=== PATIENT | female | born 1990 | race Caucasian/White ===

== ENCOUNTER 2023-11-28 16:26 | Emergency (ER) | payer OTHER, SELFPAY ==
[2023-11-28 16:28] VITALS: BP 113/82
[2023-11-28 17:06] VITALS: BMI 23.2
--- NOTE | 2023-11-28 17:26 | ED.GENMED ---
History of Present Illness
General
Chief Complaint: Headache
Source: patient
Time Seen by Provider: 11/28/23 17:10
Travel History
Have you had any contact with someone who has COVID-19?: No
Do you have any symptoms of coronavirus? Fever > 100 degrees, chills, cough, shortness of breath, sore throat, loss of taste or smell, muscle aches, or headache?: No
History of Present Illness
History of Present Illness:
33-year-old female presents to the emergency room complaining of a headache. Patient states she began feeling unwell about a week ago. She began feeling runny nose and nasal congestion. She also has generalized malaise. Over the past 3 days or
so she began having headache which is located on the right side of her head. It seems to existed in the right frontal area and really posterior head without much pain in between. Pain is made much worse with leaning forward. Movement in general
makes the headache worse as well. She denies associated nausea, vomiting, diarrhea, numbness or focal weakness. Patient does say she feels generally weak all over. She felt uncomfortable driving today due to the headache. She was seen at an
urgent care and was referred to the emergency room for further evaluation of this headache.
Phy Exam
Physical Exam
Physical Exam:
General: Awake, Alert, Oriented X3. No acute distress.
Vitals: unremarkable
Head: Atraumatic, ischemic pain with percussion of the frontal or maxillary sinuses
Ears: Normal TMs bilaterally
Eyes: Pupils equal, EOMI
Throat: Airway intact, no exudates
Neck: Trachea midline
Lungs: Clear and equal b/l
Heart: Regular rate, no murmurs
Abd: Soft, Nontender, No pulsatile mass
Neuro: Cranial nerves intact, muscle strength equal bilaterally, cerebellar exam normal
Skin: Warm, dry, no rash
Extremities: pulses equal b/l, no edema
Course
Orders/Labs/Results
Orders:
Orders
11/28/23 17:24
Ketorolac [Toradol] 15 mg IV NOW STA
11/28/23 17:42
COVID-19 Antigen Urgent
Source: Nasal Swab
Influenza A+B Rapid Molecular Urgent
SOPHIA Source: Nasal Swab
Specimen Description:
Abnormal Lab Results
11/28/23
17:42
SARS-CoV-2 Antigen Positive A
(Negative)
Vital Signs
Initial and Last Documented VS:
Initial Vital Signs
Temp Pulse Resp BP Pulse Ox
98.6 F 79 18 113/82 100
11/28/23 16:28 11/28/23 16:28 11/28/23 16:28 11/28/23 16:28 11/28/23 16:28
Last Documented Vital Signs
Temp Pulse Resp BP Pulse Ox
98.2 F 78 18 103/62 98
11/28/23 18:44 11/28/23 18:44 11/28/23 18:44 11/28/23 18:44 11/28/23 18:44
MDM/Problems Addressed
Differential Diagnosis Includes:
Influenza, COVID, other viral syndrome, sinusitis, intracranial lesion
MDM/Problems Addressed:
Patient presents with headache, body aches, feeling like she cannot drive or safely leave the house. Influenza test is negative. COVID test is positive. Initially the plan on obtaining a CT but now that the COVID test was obtained this is
unnecessary as we have a reason for her symptoms. She does not have any high risk medical history and may have had symptoms for greater than 5 days and so we will not prescribe Paxlovid. Patient stable for discharge home with symptomatic care
*Pulse Oximetry
Patient hypoxic: no
*Critical Care Note
Total Time (30-74mins, 75-104mins- exclusive of procedures): Not Applicable
ED Attending Note
-
Portions of this chart may have been created with voice recognition software.� Occasional wrong word or��sound alike� substitutions may have occurred due to the inherent limitations of voice recognition software.
Discharge Plan
Departure
Patient Disposition: Home (Routine Discharge)
Date of Disposition: 11/28/23
Time of Disposition: 18:15
Patient with high blood pressure during this ER visit?: No
Condition: Good
Discharge Problem:
COVID-19
Instructions: Headache, Adult (DC), COVID-19 ED
Referrals:
Rula Mccormack, DO [Family Provider] -
Activity Restrictions/Additional Instructions:
You can take 600mg of ibuprofen and 1000mg of Tylenol every 6 hours for headache, body aches.
Interventions
Interventions:
*Risk Screen - Suicide Last Done: 11/28/23 17:06
*General Assessment Last Done: 11/28/23 16:28
*Neglect/Abuse Screening Last Done: 11/28/23 17:06
ED- Fall Risk Assessment Last Done: 11/28/23 17:09
*ED COVID-19 Vaccine History Last Done: 11/28/23 16:28
*Nursing Disposition Last Done: 11/28/23 18:44
ED- Neurological Assessment Last Done: 11/28/23 17:09
Discharge Date and Time
Discharge Date/Time: 11/28/23 18:47
Print Language: ARMENIAN
[2023-11-28] MEDS: TORADOL 15 MG IV (17:52)
[2023-11-28 18:12] LABS: COVID-19 Antigen Positive (Negative)
[2023-11-28 18:44] VITALS: BP 103/62
== END 2023-11-28 18:47 | disposition home or self-care (01) ==
LOC: EMR 16:26
PROVIDERS: EMERGENCY PHYSICIAN Emergency Medicine; FAMILY PHYSICIAN Family Medicine
DX: U07.1 COVID-19 (principal)
CPT/HCPCS: 99284; 96374; 87502; 87811

== ENCOUNTER 2024-03-10 14:24 | Emergency (ER) | payer OTHER, SELFPAY ==
[2024-03-10 14:25] VITALS: BP 117/83
[2024-03-10 14:41] LABS: % Basophils 0.4 % (0-2); % Eosinophils 2.4 % (0-6); % Immature Granulocytes 0.3 % (0-0.5); % Lymphocytes 39.3 % (20.5-51.1); % Monocytes 5.6 % (1.7-9.3); Absolute Eosinophils 0.2 10^3/uL (0-0.7); Absolute Lymphocytes 3.1 10^3/uL (1.2-3.4); Absolute Monocytes 0.4 10^3/uL (0.1-0.6); Absolute Neutrophils 4.1 10^3/uL (1.4-6.5); Hematocrit 38.7 % (37.0-47.0); Hemoglobin 13.7 g/dL (12.0-16.0); Mean Corp Hgb Conc. 35.4 g/dL (33.0-37.0); Mean Corpuscular Hgb 31.1 pg (27.0-31.0); Mean Platelet Volume 10.7 fL (7.4-10.4); Nucleated Red Blood Cells % 0 %; Platelet Count 279 10^3/uL (130-400); Red Cell Dist. Width 12.1 % (11.5-14.5); White Blood Cell Count 7.9 10^3/uL (4.8-10.8)
[2024-03-10 15:01] LABS: HCG, Serum Qualitative Screen Negative
[2024-03-10 15:03] LABS: ALT (SGPT) 19 U/L (0-35); AST (SGOT) 29 U/L (14-36); Albumin 4.6 g/dl (3.5-5.0); Alkaline Phosphatase 40 U/L (38-126); Blood Urea Nitrogen 16 mg/dl (7-17); Calcium 9.9 mg/dl (8.4-10.2); Carbon Dioxide 25 mmol/L (22-30); Chloride 105 mmol/L (98-107); Glucose 89 mg/dl (70-99); Lipase 101 U/L (23-300); Sodium 137 mmol/L (135-145); Total Protein 7.3 g/dl (6.3-8.2); eGFR > 60.00
--- NOTE | 2024-03-10 15:17 | ED.GENMED ---
History of Present Illness
General
Chief Complaint: Abdominal Pain
Source: patient
Exam Limitations: none
Time Seen by Provider: 03/10/24 15:09
Nursing documentation reviewed up to this point in time: agreed with
History of Present Illness
History of Present Illness:
34-year-old female with no significant chronic medical issues and no reported past surgical history presents to the emergency room for evaluation of abdominal pain. Patient reports onset Wednesday and symptoms have gradually worsened since then;
today more intense. Pain located in the right abdomen. Symptoms have been constant. Nonradiating. No clear triggering or relieving factors. She reports mild associated nausea today but no vomiting. She denies diarrhea or constipation. She
denies dysuria, hematuria, change in urinary frequency. She denies vaginal bleeding or discharge. She reports her last menstrual period was less than a week ago.
Review of Systems
Review of Systems
All Other Systems: ROS reviewed and negative except as documented in HPI and ROS
Constitutional: Denies fever or chills
Respiratory: Denies trouble breathing
Cardiac: Denies chest pain
ABD/GI: Reports abdominal pain and nausea; Denies vomiting, diarrhea, constipated or anorexia
: Denies dysuria, frequency, flank pain or bleeding
Musculoskeletal: Denies neck pain or back pain
Phy Exam
Physical Exam
Physical Exam:
General: Awake, alert, oriented x3; no acute distress
Head: Normocephalic, atraumatic
Eyes: Conjunctiva normal, sclerae anicteric
Throat: Airway intact, handling secretions
Neck: Trachea midline
Lungs: Clear to auscultation bilaterally, no wheezing, rales, rhonchi
Heart: Regular rate and rhythm, no murmurs, gallops, or rubs
Abd: Soft, non distended, tender to palpation right upper quadrant and slightly right lower quadrant with no peritoneal signs
Back: No CVA tenderness
Neuro: No gross deficit
Skin: no rash
Extremities: No edema in extremities, equal pulses in all extremities
Scores
Heart Failure Risk
Heart Failure Risk Score: Not Applicable
Heart Score for Chest Pain Patients
STEMI patient?: Not applicable
Withdrawal Assessment of Alcohol
Withdrawal Assessment Completed?: Not applicable
Course
Orders/Labs/Results
Orders:
Orders
03/10/24 14:28
Test Result ONCE
03/10/24 14:30
Complete Blood Count/With Diff Urgent
Comprehensive Metabolic Panel Urgent
HCG, Serum Qualitative Screen Urgent
Lipase Urgent
03/10/24 15:09
Iohexol [Omnipaque] See Protocol PO NOW STA
03/10/24 15:17
CT Abd/pelvis W Iv Cont Urgent
Comment:
Reason For Exam: right sided abd pain, TTP RUQ,RLQ
Abnormal Lab Results
03/10/24
14:30
MCH 31.1 H pg
(27.0-31.0)
MPV 10.7 H fL
(7.4-10.4)
03/10/24 14:30
03/10/24 14:30
Vital Signs
Initial and Last Documented VS:
Initial Vital Signs
Temp Pulse Resp BP Pulse Ox
36.8 C 69 18 117/83 99
03/10/24 14:25 03/10/24 14:25 03/10/24 14:25 03/10/24 14:25 03/10/24 14:25
Last Documented Vital Signs
Temp Pulse Resp BP Pulse Ox
36.8 C 69 18 117/83 99
03/10/24 14:25 03/10/24 14:25 03/10/24 14:25 03/10/24 14:25 03/10/24 14:25
MDM/Problems Addressed
Differential Diagnosis Includes:
Ovarian cyst, appendicitis, cholelithiasis/cholecystitis, UTI, nephrolithiasis, duodenal ulcer, IBS
MDM/Problems Addressed:
34-year-old female presents for evaluation of right sided abdominal pain for the past few days worse today associated with mild nausea. Vitals are normal. She was initially seen in urgent care reportedly had urinalysis which was unremarkable and
referred to the emergency room for further assessment. Physical exam as above. Plan to check labs including CBC and CMP, hCG. Will send for a CT of the abdomen pelvis. Offered pain medication but patient declined. Will monitor closely reassess
after the above.
Initial labs reviewed: CBC unremarkable, CMP no clinically significant abnormalities. hCG negative. Awaiting imaging.
CT abdomen pelvis shows no acute pathology to account for patient's symptoms�what is likely the appendix appears normal although radiologist notes that this is not definitive. Her tenderness is really more right upper abdomen and right lower abdomen
and with 3 days of symptoms, normal lab work, normal vital signs clinical suspicion at this point for acute appendicitis in my judgment no additional imaging indicated at this point. She was noted to have hepatomegaly with hepatic length of 19 cm.
She is more tender right upper quadrant and right lower quadrant but has normal LFTs. Nothing to suggest portal venous thrombus (discussed with radiologist). Case was discussed with gastroenterology�low suspicion that this represents cause for
acute symptoms given normal LFTs, recommended outpatient follow-up with no additional workup needed on inpatient basis at this point. Symptoms could be due to duodenal ulcer, IBS. Nothing to suggest this is ovarian pathology�again pain and
tenderness more right upper on assessment. Patient says that she feels generally well on reassessment, vitals have been stable. She is eager to eat and in fact when she heard that there was no acute surgical pathology began eating a bag of chips
immediately. I discussed with the patient results of CT scan, possible causes for symptoms. I discussed potentially pursuing additional imaging if she feels symptoms are severe or admission/observation in the hospital. She does not feel this is
necessary at this point she feels comfortable with discharge and she will return if she feels her symptoms are persisting or worsening�we did specifically discuss that although appendix was likely visualized radiologist did not feel this was
definitive and that if she has worsening symptoms she needs to return to the hospital. She indicated understanding. Using shared decision making we will discharge with strict return precautions and ultimately outpatient GI referral for
hepatomegaly.
*Radiology
Radiology exam reviewed: radiology read reviewed
*Pulse Oximetry
Patient hypoxic: no
*Critical Care Note
Total Time (30-74mins, 75-104mins- exclusive of procedures): Not Applicable
Data Reviewed
Source: patient
Patient Management
Discussion with other providers: Optometrist (Discussed with gastroenterology) and Radiologist (Discussed with radiologist)
Escalation/DeEscalation of care consider admission/obs:
Considered admission for observation�shared decision-making she was discharged with strict return precautions
ED Attending Note
-
Portions of this chart may have been created with voice recognition software.� Occasional wrong word or��sound alike� substitutions may have occurred due to the inherent limitations of voice recognition software.
Discharge Plan
Departure
Patient Disposition: Home (Routine Discharge)
Date of Disposition: 03/10/24
Time of Disposition: 16:59
Patient with high blood pressure during this ER visit?: No
Discharge Problem:
Abdominal pain, Hepatomegaly
Instructions: Abdominal Pain
Prescriptions:
New
pantoprazole 40 mg tablet,delayed release (DR/EC)
40 mg PO DAILY Qty: 30 0RF
Referrals:
Artur Edmonds MD [Active] - Call in 1-3 days for appt (GI Physician)
NONE,* [Family Provider] -
Activity Restrictions/Additional Instructions:
You were seen in the emergency room for abdominal pain; your CT showed no emergent cause of your pain. We did incidentally note slightly enlarged liver on your CT scan, fortunately your liver function test were normal. You should follow-up with
gastroenterology as we discussed for further testing regarding your slightly enlarged liver. If you feel your symptoms or not improving or certainly if they are worsening at any point in time, or if you develop any new symptoms including fever,
chills, vomiting, yellowing of the skin or any other concerning symptoms you must return to the emergency room for reassessment.
Thank you for visiting the Emergency Department at [facility].
1. Please schedule a follow up appointment as directed. Call first thing tomorrow morning to make an appointment.
2. If indicated, please take your medications as instructed and indicated on discharge paperwork.
3. If any of your symptoms do not improve, or persist, or become more severe within 6-12 hours, please return to the emergency department for further care.
4. Please return to the emergency department if you develop a headache, neck pain/stiffness, fever greater than 100.4F, chest pain, shortness of breath, persistent nausea, vomiting, slurred speech, difficulty walking, numbness/tingling, weakness,
signs of infection or any other symptoms that are worrisome to you.
Please call [phone] if you have any questions.
Interventions
Interventions:
*Risk Screen - Suicide Last Done: 03/10/24 14:25
*General Assessment Last Done: 03/10/24 14:25
*Neglect/Abuse Screening Last Done: 03/10/24 14:25
ED- Fall Risk Assessment Last Done: 03/10/24 15:39
*ED COVID-19 Vaccine History Last Done: 03/10/24 14:25
MT-Ybvgrn-Frvrrazsgz Assessment Last Done: 03/10/24 15:33
Discharge Date and Time
Print Language: DIVEHI
[2024-03-10 16:00] VITALS: BP 115/80
== END 2024-03-10 17:31 | disposition home or self-care (01) ==
LOC: EMR 14:24
PROVIDERS: Emergency Medicine; EMERGENCY PHYSICIAN Emergency Medicine; FAMILY PHYSICIAN Family Medicine
DX: R10.9 Unspecified abdominal pain (principal); R16.0 Hepatomegaly, not elsewhere classified
CPT/HCPCS: 99285; 74177; 80053; 83690; 84703; 85025; Q9967

== ENCOUNTER 2024-12-19 13:19 | Emergency (ER) | payer OTHER, SELFPAY ==
[2024-12-19 13:21] VITALS: BP 125/68
--- NOTE | 2024-12-19 14:10 | ED.GENMED ---
History of Present Illness
General
Chief Complaint: Skin Problem
Time Seen by Provider: 12/19/24 14:10
History of Present Illness
History of Present Illness:
TIME OF INITIAL ENCOUNTER: 2:10 PM
HPI: Patient presents due to concerns of an abscess to the left side of the face. Redness onset 3d ago was very mild at first however today would dramatically worsen. She has had no fevers. She is otherwise healthy although has had 'cysts' in the
past.
EXAM:
GENERAL: Well appearing in no distress
HEENT: Moist oral mucosa, some mild tenderness to palpation and erythema noted to the left side of the face over the zygoma
NEUROLOGIC: Excellent strength all extremities, no coordination deficits
PSYCHIATRIC: Appropriate mental status, normal insight and judgement
EXTREMITIES: Nontender, no edema, moves all extremities equally
SKIN: There is erythema and indurated tissue noted just lateral to the left side of the nose inferior to the zygoma however there is no definite palpable drainable abscess
NUMBER AND COMPLEXITY OF PROBLEMS ADDRESSED AT THE ENCOUNTER
� Chronic conditions affecting care: The patient is otherwise healthy, not a diabetic
� Acute Exacerbation and/or Progression of Chronic Illness: This is an acute problem
� Differential Diagnosis includes: Facial cellulitis, facial abscess, dental infection
AMOUNT AND/OR COMPLEXITY OF DATA TO BE REVIEWED AND ANALYZED
� I performed an independent evaluation of and my interpretation is:
EKG:
CT:
X-rays:
Laboratory Studies: Wound culture pending
Other:
� Review of other/old records: The patient was seen here last February with abdominal pain
� Clinical information was obtained by an independent historian: I also spoke to son at bedside
� Prescriptions/Medications Considered but not given:
� Further testing considered but not performed: No clear indication for labs at this time
RISK OF COMPLICATIONS AND/OR MORBIDITY OR MORTALITY OF PATIENT MANAGEMENT
� Social determinants of health affecting care: Lives at home
� Discussion with other providers:
� Escalation of care including admission/observation vs risk of discharge considered: We did attempt drainage however there was scant amount of fluid returned. There is no definite palpable drainable abscess. The area of
concern is somewhat indurated which may imply an early abscess or just simply cellulitis. Will use doxycycline and she was encouraged to return if worse.
ANY OTHER UPDATES:
Phy Exam
Physical Exam
Physical Exam:
See HPI
Course
Orders/Labs/Results
Orders:
Orders
12/19/24 14:43
Doxycycline [Vibramycin] 100 mg PO NOW STA
12/19/24 14:51
Wound Culture [Wound/Abscess/Other Culture] Urgent
SOPHIA Source: Face
Specimen Description: Left
Date Specimen was Collected: 12/19/24
Time Specimen was Collected: 14:50
Vital Signs
Initial and Last Documented VS:
Initial Vital Signs
Temp Pulse Resp BP Pulse Ox
37.1 C 83 18 125/68 98
12/19/24 13:21 12/19/24 13:21 12/19/24 13:21 12/19/24 13:21 12/19/24 13:21
Last Documented Vital Signs
Temp Pulse Resp BP Pulse Ox
37.1 C 86 18 126/70 98
12/19/24 13:21 12/19/24 15:00 12/19/24 15:00 12/19/24 15:00 12/19/24 15:00
Procedures
Incision/Drainage/Joint Aspiration
Left Face:
Anethesia: 1% Lidocaine
Preparation: cleaned with Hibiclens
Type of procedure: aspiration
Nature of site: other (Indurated tissue with possible abscess)
Description of abscess: less than 3cm
Loculations broken up: No
How much fluid was obtained?: scant amount
Treatment: left open for drainage
*Critical Care Note
Total Time (30-74mins, 75-104mins- exclusive of procedures): Not Applicable
ED Attending Note
-
Portions of this chart may have been created with voice recognition software.� Occasional wrong word or��sound alike� substitutions may have occurred due to the inherent limitations of voice recognition software.
Discharge Plan
Departure
Patient Disposition: Home (Routine Discharge)
Date of Disposition: 12/19/24
Time of Disposition: 14:43
Patient with high blood pressure during this ER visit?: Yes
Discharge Problem:
Facial cellulitis
Instructions: Cellulitis (Skin Infection), Adult (DC), BLOOD PRESSURE
Prescriptions:
New
doxycycline hyclate 100 mg tablet
100 mg PO BID Qty: 14 0RF
No Action
pantoprazole 40 mg tablet,delayed release (DR/EC)
40 mg PO DAILY Qty: 30 0RF
Referrals:
Trini Torres, DMD [Active] - Follow up in 2-3 days
Activity Restrictions/Additional Instructions:
I placed an 18-gauge needle in the area of concern however there was no significant drainage. I did get a very tiny amount which we will send for culture. You will only be notified if antibiotics need to be changed. Next dose of doxycycline
before bed tonight. I have given you the contact information for local oral maxillofacial surgeon in case symptoms worsen. If your symptoms are not improved by 48 hours or the symptoms dramatically worsen rapidly, return here for further
evaluation.
Interventions
Interventions:
*Risk Screen - Suicide Last Done: 12/19/24 13:23
*General Assessment Last Done: 12/19/24 13:23
*Neglect/Abuse Screening Last Done: 12/19/24 13:23
*ED COVID-19 Vaccine History Last Done: 12/19/24 13:23
*Nursing Disposition Last Done: 12/19/24 15:00
ED-Skin Assessment Last Done: 12/19/24 14:05
Discharge Date and Time
Discharge Date/Time: 12/19/24 15:03
Print Language: THAI
[2024-12-19] MEDS: VIBRAMYCIN 100 MG PO (14:59)
[2024-12-19 15:00] VITALS: BP 126/70
== END 2024-12-19 15:03 | disposition home or self-care (01) ==
LOC: EMR 13:19
PROVIDERS: EMERGENCY PHYSICIAN Emergency Medicine; FAMILY PHYSICIAN Family Medicine
DX: L03.211 Cellulitis of face (principal)
CPT/HCPCS: 10060; 99283; 87070; 87205